=== PATIENT | male | born 1970 | race Caucasian/White ===

== ENCOUNTER 2020-11-19 07:44 | Day surgery (SDC) | payer OTHER, SELFPAY ==
[~2020-11-19] VITALS: Ht 182.9 cm; Wt 108.9 kg
[2020-11-19] MEDS ORDERED: diphenhydrAMINE 50 MG/ML VIAL ONE (08:47)
[2020-11-19] MEDS ORDERED: fentaNYL citrate 0.05 MG/ML VIAL ONE (08:48)
[2020-11-19] MEDS ORDERED: MIDAZOLAM 5 MG/5 ML VIAL ONE (08:48)
[2020-11-19] MEDS: MIDAZOLAM 2 MG/2 ML VIAL IVP ONE (09:09)
[2020-11-19] MEDS: fentaNYL citrate 0.05 MG/ML VIAL IVP ONE (09:10)
[2020-11-19] MEDS: LIDOCAINE 2% 100 MG/5 ML UJET TP ONE (09:13)
== END 2020-11-19 10:22 | disposition home or self-care (01) ==
LOC: MDS 07:44 → MMU 07:45 → MDS 10:22
PROVIDERS: ATTEND Internal Medicine Gastroenterology
DX: Z12.11 Encounter for screening for malignant neoplasm of colon (principal); K63.5 Polyp of colon; Z87.891 Personal history of nicotine dependence; Z20.822 Contact with and (suspected) exposure to COVID-19
CPT/HCPCS: 45385; J2250; J3010; U0003; 88305; J1200